=== PATIENT | male | born 1950 | race Caucasian/White ===

== ENCOUNTER 2016-09-25 14:09 | Emergency (ER) | payer OTHER, BC ==
[~2016-09-25] VITALS: Ht 180.3 cm; Wt 118.2 kg
[2016-09-25 14:30] VITALS: TEMP 36.5; Ht 180.3 cm; Wt 118.2 kg
[2016-09-25] MEDS ORDERED: CARV25TA2 PO (14:47)
[2016-09-25] MEDS ORDERED: PRED20TA PO (14:47)
[2016-09-25] MEDS ORDERED: HYDR25TA4 PO (14:47)
[2016-09-25] MEDS ORDERED: TELM80TA PO (14:47)
[2016-09-25] MEDS ORDERED: ASPI81TA28 PO (14:47)
[2016-09-25] MEDS ORDERED: CLC6 PO (14:47)
[2016-09-25] MEDS ORDERED: CHOL2000 PO (14:47)
[2016-09-25] MEDS ORDERED: FEBU80TA PO (14:47)
[2016-09-25] MEDS ORDERED: OMEG10007 PO (14:47)
[2016-09-25] MEDS ORDERED: PRAV40TA PO (14:47)
[2016-09-25] MEDS ORDERED: OPTIRAY 320 IV PRN (15:00)
--- NOTE | 2016-09-25 15:26 | EMERGENCY ROOM VISIT NOTE ---
History Report prepared by Eyal: Ariane Lomeli Under the Supervision of: Kev Mcclure.O. First contact with patient: 14:37 Chief Complaint: NECK PAIN Stated Complaint: SWOLLEN NECK History of Present Illness The patient is a 66 year old male who presents to the Emergency Room with complaints of worsening neck pain for since yesterday. He felt fine when he went to bed two nights ago. He woke up yesterday morning with pain and swelling on the right side of his neck. His neck is painful to touch and turning his head to the right side exacerbates his pain. He has never experienced symptoms like this before. The patient took ibuprofen for his pain last night. When he woke up this morning his symptoms were much worse. He has a headache today and the swelling is spreading across the front of his neck. He denies any trouble swallowing or breathing. Pt denies fevers, chills, cough, sore throat, dizziness , lightheadedness, nausea, any recent illness, and any recent bug bites. He denies any sick contacts. The patient has not had any recent dental procedures. He has both upper and lower dentures. He does not take any blood thinners. He was a smoker as a teenager, but denies any more recent tobacco use. Source of History: patient Onset: yesterday Position: neck Quality: other (swelling) Timing: worsening Modifying Factors (Relieving): ibuprofen Associated Symptoms: + headache, No chills, No cough, No fevers, No nausea, No sorethroat Note: He denies any trouble breathing or swallowing. Review of Systems See HPI for pertinent positives & negatives. A total of 10 systems reviewed and were otherwise negative. Past Medical & Surgical Medical Problems: (1) Gout (2) Hypertension Family History FHx: cancer Seizures Social History Smoking Status: Former Smoker Smokeless Tobacco Use: No Alcohol Use: none Marital Status: Housing Status: lives with significant other Occupation Status: retired Current/Historical Medications Scheduled Amoxicillin & Pot Clavulanate (Augmentin 875-125 mg), 875 MG PO BID Aspirin (Aspirin Ec), 81 MG PO DAILY Carvedilol (Coreg), 25 MG PO BID Cholecalciferol (Vitamin D3), 1 CAP PO DAILY Colchicine (Colcrys), 1 TAB PO DAILY Febuxostat (Uloric), 2 TAB PO DAILY Fish Oil ([place]-3), 1,200 MG PO DAILY Hydrochlorothiazide (Hctz), 25 MG PO DAILY Pravastatin Sodium (Pravachol), 1 TAB PO DAILY Prednisone (Prednisone), 0 PO DAILY Telmisartan (Micardis), 80 MG PO DAILY Allergies Coded Allergies: No Known Allergies (Unverified , 09/25/16) Physical Exam Vital Signs Date Time Temp Pulse Resp B/P Pulse Ox O2 Delivery O2 Flow Rate FiO2 09/25/16 17:42 69 16 189/76 98 09/25/16 16:18 62 16 227/97 97 Room Air 09/25/16 14:30 36.5 62 20 228/92 96 Room Air Physical Exam GENERAL: alert, well appearing, well nourished, no distress, non-toxic EYE EXAM: normal conjunctiva, PERRL and EOM's grossly intact OROPHARYNX: no exudate, no erythema, lips, buccal mucosa, and tongue normal and mucous membranes are moist NECK: supple, no nuchal rigidity, large swelling to the right neck, no stridor. LUNGS: Clear to auscultation. Normal chest wall mechanics HEART: no murmurs, S1 normal and S2 normal ABDOMEN: abdomen soft, non-tender, normo-active bowel sounds, no masses, no rebound or guarding. BACK: Back is symmetrical on inspection and there is no deformity, no midline tenderness, no CVA tenderness. SKIN: no rashes and no bruising UPPER EXTREMITIES: upper extremities are grossly normal. LOWER EXTREMITIES: No pitting edema. NEURO EXAM: Normal sensorium Medical Decision & Procedures ER Provider Diagnostic Interpretation: Radiology results have been interpreted by the radiologist and reviewed by me. CT NECK WITH INTRAVENOUS CONTRAST. HISTORY: right neck swelling TECHNIQUE: Multiaxial CT images of the neck were performed following the use of intravenous contrast. COMPARISON STUDY: None. FINDINGS: The visualized brain parenchyma and orbits are unremarkable. No pneumothorax. Degenerative changes seen within the cervical spine. The mastoid air cells are clear. Small retention cysts within the right maxillary sinus. Bilateral carotid bifurcation calcification. This results in 50% stenosis at the proximal right internal carotid artery. No significant stenosis within the left internal carotid artery. The thyroid gland enhances normally. Prevertebral soft tissues and the epiglottis are normal in thickness. Subcutaneous edema within the right lateral neck and surrounding the majority of the sternocleidomastoid muscle. There is also edema overlying the right parotid gland and adjacent to the right submandibular gland. Slight increase in enhancement within the right parotid gland. Along the inferior border of the right parotid gland there is a 1.9 cm low-density oval-shaped structure. There are few calcifications within the bilateral palatine tonsils. No parotid or submandibular gland stones identified. IMPRESSION: 1. Soft tissue primarily surrounding the right parotid gland which demonstrates slight increased enhancement in comparison to the left side. Therefore, this favors a parotiditis. There is also edema adjacent the right submandibular gland which is likely reactive. 2. A 1.9 cm low density nodule immediately inferior to the right parotid gland. This may represent a necrotic lymph node or cystic mass. A small abscess could also have a similar appearance but is considered less likely. Ultrasound guided fine aspiration of this lesion is recommended once the patient's inflammatory process has resolved. 3. Approximately 50% stenosis within the proximal right internal carotid artery due to the atherosclerotic plaque. Electronically signed by: Hung Botello M.D. 09/25/2016 5:04 PM Dictated Date/Time: 09/25/2016 4:55 PM CHEST ONE VIEW PORTABLE HISTORY: neck swelling COMPARISON: None. FINDINGS: The heart is mildly enlarged. The lungs are clear. No pleural effusions. No pneumothorax. IMPRESSION: No acute process. Electronically signed by: Hung Botello M.D. 09/25/2016 3:58 PM Dictated Date/Time: 09/25/2016 3:56 PM Laboratory Results 09/25/16 15:15 Red Blood Count 4.70, Mean Corpuscular Volume 88.9, Mean Corpuscular Hemoglobin 30.4, Mean Corpuscular Hemoglobin Concent 34.2, Mean Platelet Volume 10.6, Neutrophils (%) (Auto) 75.4, Lymphocytes (%) (Auto) 11.8, Monocytes (%) (Auto) 10.0, Eosinophils (%) (Auto) 2.5, Basophils (%) (Auto) 0.1, Neutrophils # (Auto ) 10.37, Lymphocytes # (Auto) 1.63, Monocytes # (Auto) 1.38, Eosinophils # (Auto ) 0.34, Basophils # (Auto) 0.02 09/25/16 15:15 Test 09/25/16 15:15 White Blood Count 13.77 K/uL (4.8-10.8) Red Blood Count 4.70 M/uL (4.7-6.1) Hemoglobin 14.3 g/dL (14.0-18.0) Hematocrit 41.8 % (42-52) Mean Corpuscular Volume 88.9 fL (80-100) Mean Corpuscular Hemoglobin 30.4 pg (25-34) Mean Corpuscular Hemoglobin Concent 34.2 g/dl (32-36) Platelet Count 242 K/uL (130-400) Mean Platelet Volume 10.6 fL (7.4-10.4) Neutrophils (%) (Auto) 75.4 % Lymphocytes (%) (Auto) 11.8 % Monocytes (%) (Auto) 10.0 % Eosinophils (%) (Auto) 2.5 % Basophils (%) (Auto) 0.1 % Neutrophils # (Auto) 10.37 K/uL (1.4-6.5) Lymphocytes # (Auto) 1.63 K/uL (1.2-3.4) Monocytes # (Auto) 1.38 K/uL (0.11-0.59) Eosinophils # (Auto) 0.34 K/uL (0-0.5) Basophils # (Auto) 0.02 K/uL (0-0.2) RDW Standard Deviation 43.2 fL (36.4-46.3) RDW Coefficient of Variation 13.3 % (11.5-14.5) Immature Granulocyte % (Auto) 0.2 % Immature Granulocyte # (Auto) 0.03 K/uL (0.00-0.02) Anion Gap 5.0 mmol/L (3-11) Est Creatinine Clear Calc Drug Dose 78.1 ml/min Estimated GFR () 72.1 Estimated GFR (Non- 62.2 BUN/Creatinine Ratio 19.3 (10-20) Calcium Level 9.4 mg/dl (8.5-10.1) Monoscreen NEG (NEG) Laboratory results per my review. Medications Administered Medications (Trade) Dose Ordered Sig/Janey Route Start Time Stop Time Status Last Admin Dose Admin Ketorolac Tromethamine (Toradol Inj) 30 mg NOW STAT IV 09/25/16 17:12 09/25/16 17:13 DC 09/25/16 17:42 30 MG Amoxicillin/ Clavulanate Potassium (Augmentin Tab) 875 mg ONE ONCE PO 09/25/16 17:15 09/25/16 17:16 DC 09/25/16 17:42 875 MG ED Course 1437: The patient was evaluated in room C7. A complete history and physical exam was performed. 171: Toradol 30 mg IV 1715: Augmentin tab 875 mg PO 1726: I reassessed the patient at this time. He is feeling better and resting comfortably. I discussed the results and treatment plan with the patient and his family. I answered all pertaining questions that they had. They expressed understanding and verbalized agreement. The patient will be discharged home and was encouraged to follow-up with his PCP. Medical Decision Differential diagnoses includes sialolithiasis, parotiditis, submandibular abscess, deep space infection, Lemierre's Disease, Yvon's angina, dental abscess, mumps, carotid dissection Patient well-appearing here despite swollen area to right face and neck. Patient made aware of all results and started on antibiotics. Discussed close follow-up with family doctor as well as ENT. Discussed symptoms to watch and return for. Patient comes well-appearing here, pain controlled, no stridor, no dysphagia, no difficulty breathing. Patient afebrile and nontoxic in appearance. Patient with mild leukocytosis, labs otherwise reassuring. Discussed with patient adequate hydration, use of antibiotics, yogurt or probiotics as a precaution, mumps sent as a precaution, however I have a low suspicion for this as the etiology. Impression Primary Impression: Parotitis Scribe Attestation The scribe's documentation has been prepared under my direction and personally reviewed by me in its entirety. I confirm that the note above accurately reflects all work, treatment, procedures, and medical decision making performed by me. Departure Information Dispostion Home / Self-Care Prescriptions Amoxicillin & Pot Clavulanate (Augmentin 875-125 mg) 1 Tab Tab 875 MG PO BID for 10 Days, TAB Prov: Mia Chawla DO 09/25/16 Referrals No Doctor, Assigned (PCP) Forms HOME CARE DOCUMENTATION FORM, IMPORTANT VISIT INFORMATION, WORK / SCHOOL INSTRUCTIONS Patient Instructions My [facility] Additional Instructions Please follow up with her family doctor as well as the ear nose and throat doctor. Please take the antibiotics as prescribed. Please consider eating yogurt or taking an [id number] probiotic while using the antibiotics. You may use Tylenol and ibuprofen as needed for pain. If you have any worsening pain, increased swelling, develop fevers or chills, difficulty swallowing, trouble breathing, vomiting, or you have any other new concerns, please return the emergency room.
[2016-09-25 15:27] LABS: BASO % 0.1 %; BASO ABS # 0.02 K/uL (0-0.2); COMPLETE YES; EOS % 2.5 %; HEMATOCRIT 41.8 % (42-52); IG% 0.2 %; LYMPH % 11.8 %; LYMPH ABS # 1.63 K/uL (1.2-3.4); MEAN CELL VOLUME 88.9 fL (80-100); MEAN CORPUSCULAR HEMOGLOBIN 30.4 pg (25-34); MEAN CORPUSCULAR HGB CONC 34.2 g/dl (32-36); MEAN PLATELET VOLUME 10.6 fL (7.4-10.4); NEUT % 75.4 %; PLATELET COUNT 242 K/uL (130-400); WHITE BLOOD COUNT 13.77 K/uL (4.8-10.8)
[2016-09-25 15:43] LABS: BUN/CREATININE RATIO 19.3 (10-20); CALCIUM 9.4 mg/dl (8.5-10.1); CREATININE 1.2 mg/dl (0.60-1.40); POTASSIUM 3.3 mmol/L (3.5-5.1)
--- NOTE | 2016-09-25 15:59 | DIAGNOSTIC IMAGING REPORT ---
CHEST ONE VIEW PORTABLE HISTORY: neck swelling COMPARISON: None. FINDINGS: The heart is mildly enlarged. The lungs are clear. No pleural effusions. No pneumothorax. IMPRESSION: No acute process. Electronically signed by: Hung Botello M.D. 09/25/2016 3:58 PM Dictated Date/Time: 09/25/2016 3:56 PM
--- NOTE | 2016-09-25 17:05 | DIAGNOSTIC IMAGING REPORT ---
CT NECK WITH INTRAVENOUS CONTRAST. HISTORY: right neck swelling TECHNIQUE: Multiaxial CT images of the neck were performed following the use of intravenous contrast. COMPARISON STUDY: None. FINDINGS: The visualized brain parenchyma and orbits are unremarkable. No pneumothorax. Degenerative changes seen within the cervical spine. The mastoid air cells are clear. Small retention cysts within the right maxillary sinus. Bilateral carotid bifurcation calcification. This results in 50% stenosis at the proximal right internal carotid artery. No significant stenosis within the left internal carotid artery. The thyroid gland enhances normally. Prevertebral soft tissues and the epiglottis are normal in thickness. Subcutaneous edema within the right lateral neck and surrounding the majority of the sternocleidomastoid muscle. There is also edema overlying the right parotid gland and adjacent to the right submandibular gland. Slight increase in enhancement within the right parotid gland. Along the inferior border of the right parotid gland there is a 1.9 cm low-density oval-shaped structure. There are few calcifications within the bilateral palatine tonsils. No parotid or submandibular gland stones identified. IMPRESSION: 1. Soft tissue primarily surrounding the right parotid gland which demonstrates slight increased enhancement in comparison to the left side. Therefore, this favors a parotiditis. There is also edema adjacent the right submandibular gland which is likely reactive. 2. A 1.9 cm low density nodule immediately inferior to the right parotid gland. This may represent a necrotic lymph node or cystic mass. A small abscess could also have a similar appearance but is considered less likely. Ultrasound guided fine aspiration of this lesion is recommended once the patient's inflammatory process has resolved. 3. Approximately 50% stenosis within the proximal right internal carotid artery due to the atherosclerotic plaque. Electronically signed by: Hung Botello M.D. 09/25/2016 5:04 PM Dictated Date/Time: 09/25/2016 4:55 PM
[2016-09-25] MEDS ORDERED: KETOROLAC TROMETHAMINE 30 MG/ML VIAL IV STA (17:12)
[2016-09-25] MEDS ORDERED: AMOXICILLIN/CLAVULANATE TAB 875 MG TAB PO ONE (17:15)
[2016-09-25] MEDS ORDERED: AMOX875T PO (17:30)
[2016-09-25 17:42] VITALS: BP 189/76; PULSE 69; O2SAT 98
[2016-09-29 18:27] LABS: MUMPS VIRUS ANTIBODY IGM <1:20
== END 2016-09-25 17:43 | disposition home or self-care (01) ==
LOC: C.EDB 14:12 → C.EDC 17:43
DX: K11.20 Sialoadenitis, unspecified (principal); I10 Essential (primary) hypertension; M10.9 Gout, unspecified; Z79.82 Long term (current) use of aspirin; Z87.891 Personal history of nicotine dependence; Z82.0 Family history of epilepsy and other diseases of the nervous system

== ENCOUNTER → 2016-10-03 | Outpatient (CLI) | payer OTHER, BC ==
[~2016-10-03] MED LIST: AMOX875T PO; ASPI81TA28 PO; CARV25TA2 PO; CHOL2000 PO; CLC6 PO; FEBU80TA PO; HYDR25TA4 PO; OMEG10007 PO; PRAV40TA PO; PRED20TA PO; TELM80TA PO
--- NOTE | 2016-10-03 13:04 | DIAGNOSTIC IMAGING REPORT ---
ULTRASOUND SOFT TISSUES NECK CLINICAL HISTORY: Benign parotid neoplasm. COMPARISON STUDY: CT scan of the neck dated 09/25/2016. FINDINGS: Real-time, grayscale, and color flow sonography of the right parotid gland is performed. There is a 1.8 x 0.9 x 1.5 cm predominantly cystic lesion within the inferior aspect of the right parotid gland. This corresponds to the lesion seen by CT on 09/25/2016. No internal flow is identified on color imaging. Small benign-appearing regional cervical lymph nodes are incidentally noted. These measure up to 8mm. IMPRESSION: There is a 1.8 cm indeterminant and predominantly cystic lesion identified in the inferior aspect of the right parotid gland. Follow-up with a fine-needle aspiration is recommended for further assessment. Electronically signed by: Michel Burton M.D. 10/03/2016 1:02 PM Dictated Date/Time: 10/03/2016 12:59 PM
== END | disposition home or self-care (01) ==
LOC: C.ULTR 12:05
PROVIDERS: ATTEND Otolaryngology
DX: D11.0 Benign neoplasm of parotid gland (principal)

== ENCOUNTER → 2017-08-15 | Outpatient (CLI) | payer OTHER, BC ==
[~2017-08-15] MED LIST changes: -AMOX875T PO
== END | disposition home or self-care (01) ==
LOC: C.PATHSPEC 17:26
PROVIDERS: ATTEND Urology
DX: R31.0 Gross hematuria (principal); N40.1 Benign prostatic hyperplasia with lower urinary tract symptoms

== ENCOUNTER → 2017-08-30 | Outpatient (CLI) | payer OTHER, BC ==
[2017-08-30 17:51] LABS: ALBUMIN 3.9 gm/dl (3.4-5.0); ALT/SGPT 60 U/L (12-78); AST/SGOT 33 U/L (15-37); BLOOD UREA NITROGEN 23 mg/dl (7-18); CALCIUM 10.2 mg/dl (8.5-10.1); CARBON DIOXIDE 28 mmol/L (21-32); CREATININE 1.18 mg/dl (0.60-1.40); GLUCOSE 89 mg/dl (70-99); POTASSIUM 3.4 mmol/L (3.5-5.1); SODIUM 138 mmol/L (136-145)
[2017-08-30 17:55] LABS: ALKALINE PHOSPHATASE 86 U/L (45-117); TOTAL PROTEIN 7.5 gm/dl (6.4-8.2)
== END | disposition home or self-care (01) ==
LOC: C.LABMFLN 11:18
PROVIDERS: ATTEND Family Medicine
DX: R31.0 Gross hematuria (principal); N40.1 Benign prostatic hyperplasia with lower urinary tract symptoms

== ENCOUNTER → 2017-09-12 | Outpatient (CLI) | payer OTHER, BC ==
[~2017-09-12] MED LIST changes: +OPTIRAY 320 IV PRN
--- NOTE | 2017-09-12 13:09 | DIAGNOSTIC IMAGING REPORT ---
ABD/PELVIS COMBO CLINICAL HISTORY: 67 years-old Male presenting with R31.0 hematuria. TECHNIQUE: Multidetector CT of the abdomen and pelvis was performed before and after the administration of intravenous contrast. IV contrast: 119 mL of Optiray 320. A dose lowering technique was used consistent with the principles of ALARA (as low as reasonably achievable). COMPARISON: None. CT DOSE (mGy.cm): The estimated cumulative dose is 2071.96 mGycm. FINDINGS: Bark Peeler topogram: Unremarkable. Lung bases: Lungs and pleural spaces clear. Normal heart size. No pericardial or pleural effusion. Liver: Normal morphology. Density suggestive of hepatic steatosis. No focal lesion. Patent hepatic vasculature. Biliary: No intrahepatic or extrahepatic biliary ductal dilatation. Gallbladder contains gallstones. Pancreas: Mild parenchymal atrophy. Spleen: Normal. Adrenal glands: Normal. Kidneys and ureters: Normal. No renal mass. No hydronephrosis. No nephrolithiasis. No filling defect within the urinary collecting system. Ureters are normal without urothelial thickening, obstructing calculus or mass. Bladder: Enhancing polypoid 3.8 cm mass arising from the left lateral wall of the bladder. No gross evidence of soft tissue nodularity beyond the wall to suggest invasion. Pelvic organs: Prostate and seminal vesicles normal. Bowel: Diverticulosis of the proximal to mid sigmoid colon with wall thickening. No pericolonic fat infiltration. Diverticulosis of the descending colon. The appendix is normal. No bowel obstruction. Peritoneal cavity: No free fluid or intraperitoneal gas. Lymph nodes: No enlarged lymph nodes in the abdomen or pelvis. Vasculature: Atherosclerosis of the normal caliber abdominal aorta. IVC patent. Abdominal wall: Fat-containing left inguinal hernia. Nonspecific subcutaneous edema in the lumbar region. Musculoskeletal: Degenerative changes of the spine. Mild degenerative changes of the hips. IMPRESSION: 1. Findings highly suspicious for a polypoid bladder neoplasm along the left lateral wall. No gross evidence of invasion into the perivesicular fat. No lymphadenopathy or evidence of metastatic disease in abdomen or pelvis. 2. No evidence of a solid renal neoplasm, nephrolithiasis or hydronephrosis. 3. Hepatic steatosis. The report will be called/faxed according to standard departmental protocol. Electronically signed by: Ravinder Alejo M.D. 09/12/2017 1:07 PM Dictated Date/Time: 09/12/2017 12:58 PM
== END | disposition home or self-care (01) ==
LOC: C.CTS 12:16
PROVIDERS: ATTEND Urology
DX: R94.8 Abnormal results of function studies of other organs and systems (principal); K76.0 Fatty (change of) liver, not elsewhere classified; R31.0 Gross hematuria

== ENCOUNTER → 2017-10-03 | Day surgery (SDC) | payer OTHER, BC ==
[2017-09-22 11:11] VITALS: BMI 36.0
--- NOTE | 2017-09-22 11:58 | PAT Medication Instructions ---
Service Date September 22, 2017. Current Home Medication List Acetaminophen (Tylenol), 650 MG PO PRN Aspirin (Aspirin Ec), 81 MG PO QAM Carvedilol (Coreg), 25 MG PO BID Colchicine (Colcrys), 1 TAB PO QAM Febuxostat (Uloric), 2 TAB PO QAM Fish Oil ([place]-3), 1,200 MG PO BID Hydrochlorothiazide (Hctz), 25 MG PO QAM Pravastatin Sodium (Pravachol), 1 TAB PO QAM Prednisone (Prednisone), 0 PO DAILY PRN for GOUT Telmisartan (Micardis), 80 MG PO QAM Medication Instructions For Your Scheduled Surgery -Check with your surgeon for instructions for: Colchicine (Colcrys), 1 TAB PO QAM -Continue as needed for gout flares: Prednisone (Prednisone), 0 PO DAILY PRN for GOUT - Hold the following medications starting today (09/22): Fish Oil ([place]-3), 1,200 MG PO BID - Hold the following medications 10 days prior to surgery per surgeon: Aspirin (Aspirin Ec), 81 MG PO QAM - Hold the following medications the morning of surgery: Hydrochlorothiazide (Hctz), 25 MG PO QAM Telmisartan (Micardis), 80 MG PO QAM - Take the following medications the morning of surgery with a sip of water: Acetaminophen (Tylenol), 650 MG PO PRN (if needed, but must be taken at least four hours before surgery) Carvedilol (Coreg), 25 MG PO BID Febuxostat (Uloric), 2 TAB PO QAM Pravastatin Sodium (Pravachol), 1 TAB PO QAM - Take the following medications as scheduled the night before surgery: Acetaminophen (Tylenol), 650 MG PO PRN (if needed) Carvedilol (Coreg), 25 MG PO BID If you have any questions please call us at [phone] or [phone] or [phone]
--- NOTE | 2017-09-22 12:19 | DIAGNOSTIC IMAGING REPORT ---
CHEST 2 VIEWS ROUTINE CLINICAL HISTORY: 67 years-old Male presenting with preoperative assessment for bladder mass. TECHNIQUE: PA and lateral views of the chest were obtained. COMPARISON: 09/25/2016. FINDINGS: Atherosclerosis of aortic arch. Cardiac silhouette mildly enlarged. Lungs and pleural spaces clear. Degenerative changes of the thoracic spine. Upper abdomen normal. IMPRESSION: 1. Cardiomegaly. No other convincing evidence of acute cardiopulmonary disease. Electronically signed by: Ravinder Alejo M.D. 09/22/2017 12:17 PM Dictated Date/Time: 09/22/2017 12:16 PM
[2017-09-22 12:58] LABS: BASO % 0.3 %; BASO ABS # 0.02 K/uL (0-0.2); EOS % 6.5 %; EOS ABS # 0.38 K/uL (0-0.5); HEMATOCRIT 39.7 % (42-52); HEMOGLOBIN 14.2 g/dL (14.0-18.0); IG# 0.02 K/uL (0.00-0.02); LYMPH % 27.4 %; LYMPH ABS # 1.61 K/uL (1.2-3.4); MEAN CELL VOLUME 87.3 fL (80-100); MEAN CORPUSCULAR HEMOGLOBIN 31.2 pg (25-34); MEAN CORPUSCULAR HGB CONC 35.8 g/dl (32-36); MONO % 9.5 %; MONO ABS # 0.56 K/uL (0.11-0.59); NEUT ABS # 3.29 K/uL (1.4-6.5); PLATELET COUNT 233 K/uL (130-400); RED CELL DISTRIBUTION WIDTH CV 12.6 % (11.5-14.5); RED CELL DISTRIBUTION WIDTH SD 40.5 fL (36.4-46.3); WHITE BLOOD COUNT 5.88 K/uL (4.8-10.8)
[2017-09-22 13:24] LABS: CALCIUM 9.6 mg/dl (8.5-10.1); CREATININE 1.06 mg/dl (0.60-1.40); POTASSIUM 3.7 mmol/L (3.5-5.1)
[~2017-10-03] VITALS: Ht 180.3 cm; Wt 117.7 kg
[~2017-10-03] MED LIST changes: +ACET-1311 PO; +ATROPINE SULFATE 0.1 MG/ML 5ML SYR IV PRN; +BELLADONNA/OPIUM SUPP 60 MG SUPP PR ONE; -CHOL2000 PO; +CIPR-255 PO; +CIPROFLOXACIN / D5W 400 MG IV SCH; +DEXAMETHASONE SOD INJ 4 MG/ML VIAL ONE; +EpHEDrine SULFATE INJ 50 MG/ML AMP IV PRN; +FENTANYL CITRATE INJ 50 MCG/1 ML 2 ML VIAL IV PRN; +FENTANYL CITRATE INJ 50 MCG/1 ML 2 ML VIAL ONE; +HYDROmorphone INJ 0.5 MG/0.5 ML SYR IV PRN; +LACTATED RINGER'S 1000ML 1,000 ML IV SCH; +LIDOCAINE HCL 2% 2 ML VIAL (20MG/ML) ONE; +MIDAZOLAM HCL 1 MG/ML 2ML VIAL ONE; +ONDANSETRON INJ 2 MG/ML 2 ML VIAL IV PRN; +ONDANSETRON INJ 2 MG/ML 2 ML VIAL ONE; -OPTIRAY 320 IV PRN; +OXYC7.5T65 PO; +OXYCODONE/ACETAMINOPHEN 7.5-325 TAB PO PRN; +PHEN-876 PO; +PHENYLEPHRINE 100MCG/ML 5ML SYR IV PRN; +PROMETHAZINE HCL INJ 12.5 MG in SODIUM CHLORIDE 0.9% 50ML 50 ML IV PRN; +PROPOFOL IV EMULSION 10 MG/ML 20 ML VIAL ONE; +TAMS0.4C38 PO
[2017-10-03 09:44] VITALS: BP 191/82; PULSE 53; TEMP 36.5; O2SAT 96; Ht 180.3 cm; Wt 117.7 kg
--- NOTE | 2017-10-03 11:37 | History & Physical Bridge Note ---
H&P Re-Evaluation Bridge Note: I have examined the patient, reviewed the History & Physical and in the interval since the performance of the History & Physical I have noted the following changes of clinical significance: No changes noted
--- NOTE | 2017-10-03 11:45 | Discharge Instructions ---
Discharge Instructions Date of Service October 03, 2017. Admission Reason for Admission: Bladder Mass Discharge Discharge Diagnosis / Problem: BLadder mass Discharge Goals Goal(s): Decrease discomfort, Improve function Activity Recommendations Activity Limitations: resume your previous activity Lifting Limitations: gradually increase as tolerated Exercise/Sports Limitations: gradually increase as tolerated Shower/Bathe: no limitations . Instructions / Follow-Up Instructions / Follow-Up May have blood in urine. May have pelvic discomfort. Call if any fevers or chills. Call if any issues. Current Hospital Diet Patient's current hospital diet: Discharge Diet Recommended Diet: Regular Diet Procedures Procedures Performed: TURBT Pending Studies Studies pending at discharge: no Medical Emergencies . Who to Call and When: Medical Emergencies: If at any time you feel your situation is an emergency, please call 911 immediately. . Non-Emergent Contact Non-Emergency issues call your: Primary Care Provider, Urologist Call Non-Emergent contact if: you have a fever, temperature is above 101, temperature is above 101.5, your pain is not controlled, your pain is worsening , your pain is unusual for you . . "Provider Documentation" section prepared by Dawit Vazquez. .
--- NOTE | 2017-10-03 14:04 | [facility] Operative Report ---
Operative Report Operative Date October 03, 2017. Pre-Operative Diagnosis Bladder Mass Post-Operative Diagnosis Same Procedure(s) Performed TURBT, Vic Surgeon George Estimated Blood Loss Minimal Findings 8.1 cm Bladder mass of left wall. Specimens Bladder Mass Drains None Anesthesia Type General Complication(s) none Disposition Recovery Room / PACU Indications Bladder mass found during hematuria workup. Risks and benefits discussed with patient. Description of Procedure Patient was consented and brought back to the operating room. Patient was placed under anesthesia in the supine position and moved to the dorsal lithotomy position. Patient was prepped and draped in the regular sterile fashion. A time out was completed. A 30degree Cystoscope was placed into the bladder and the entire bladder was examined. The UO's were identified. The tumor was identified. The resection scope was placed. Bipolar resection of the lesion was taken. The tumor was fully resected. The tissue was irrigated and sent for pathology. The area was assessed and the wound bed and edges were fulgurated with the loop. All bleeding was controlled. The tumor mass was approx 8.1 cm and took most of the left lateral wall. It was very wide based. Two small trigone lesions were also present. The bladder was left partially full and the wound bed fully assessed. It was drained. The scope was removed. The patient was cleaned, aroused from anesthesia, and transferred to the pacu in stable condition having tolerated the procedure well with no complications. I was present and participated in all aspects of the procedure. The patient will be monitored in the PACU until transferred. I attest to the content of the Intraoperative Record and any orders documented therein. Any exceptions are noted below. I attest to the content of the Intraoperative Record and any orders documented therein. Any exceptions are noted below.
--- NOTE | 2017-10-03 15:02 | Anesthesiology Progress Note ---
Anesthesia Post Op Note Date & Time October 03, 2017 at 15:02 Vital Signs Pain Intensity: 0 Vital Signs Past 12 Hours Date Time Temp Pulse Resp B/P (MAP) Pulse Ox O2 Delivery O2 Flow Rate FiO2 10/03/17 14:55 36.2 53 16 161/69 93 Room Air 10/03/17 14:45 54 16 151/69 93 Room Air 10/03/17 14:35 54 20 166/74 100 Oxymask 10 10/03/17 14:25 55 18 159/81 100 Oxymask 10 10/03/17 14:16 36.3 59 18 166/81 100 Oxymask 10 10/03/17 09:44 36.5 53 18 191/82 (118) 96 Room Air Notes Mental Status: alert / awake / arousable, participated in evaluation Pt Amnestic to Procedure: Yes Nausea / Vomiting: adequately controlled Pain: adequately controlled Airway Patency, RR, SpO2: stable & adequate BP & HR: stable & adequate Hydration State: stable & adequate Anesthetic Complications: no major complications apparent
[2017-10-03 15:06] VITALS: BP 162/77; PULSE 52; TEMP 36.5; O2SAT 97
[2017-10-03 15:36] VITALS: BP 162/84; PULSE 53; O2SAT 94
== END | disposition home or self-care (01) ==
LOC: C.ACU 09:16
PROVIDERS: ATTEND Urology
DX: C67.2 Malignant neoplasm of lateral wall of bladder (principal); N32.89 Other specified disorders of bladder; I10 Essential (primary) hypertension; M19.90 Unspecified osteoarthritis, unspecified site; N40.1 Benign prostatic hyperplasia with lower urinary tract symptoms; N13.8 Other obstructive and reflux uropathy; E78.00 Pure hypercholesterolemia, unspecified; M10.9 Gout, unspecified; Z79.82 Long term (current) use of aspirin; Z80.8 Family history of malignant neoplasm of other organs or systems